=== PATIENT | male | born 2000 | race African-American/Black ===

== ENCOUNTER → 2021-10-15 15:19 | Outpatient (BNVA) | payer OTHER, SELFPAY | PROVIDERS: Visit Provider Nurse Practitioner Family | DX: Z20.822 Contact with and (suspected) exposure to COVID-19 (principal) | CPT/HCPCS: 87635 ==

== ENCOUNTER 2024-09-13 16:06 | Emergency (ER) | payer SELFPAY ==
[2024-09-13 16:18] VITALS: BP 117/65; PULSE 71; RESP 16; TEMP 36.8; O2SAT 97; BMI 21.7
--- NOTE | 2024-09-13 16:38 | W.ED.ABDPA2 ---
Documented by User: Nithin Rodriguez DO 09/15/24 05:45 HPI - Abdominal Pain General: Chief Complaint: Abdominal Pain Stated Complaint: Abdominal Pain Time Seen by Provider: 09/13/24 16:22 History of Present Illness: 24-year-old male presents emergency room with abdominal pain. Complains of generalized abdominal cramping very nonspecific he states it began after he ingested some foods that had red dye and. He has family members who have difficulty with red dye. He has not had any fever sweats or chills. He has not had any vomiting or diarrhea. He no dysuria urgency or frequency no chest pain no cough no shortness of breath Associated Symptoms: Reports GI cramping and nausea; Denies chills, dysuria, fever(s) and vomiting Related Data Home Medications Medication Instructions Recorded Confirmed No Known Home Medications 10/15/21 10/15/21 Allergies Allergy/AdvReac Type Severity Reaction Status Date / Time No Known Allergies Allergy Unverified 10/15/21 14:43 Review of Systems Const: Denies: fever(s) or chills Card: Denies: chest pain Resp: Denies: dyspnea GI: Reports: abdominal pain, nausea and GI cramping; Denies: vomiting : Denies: dysuria, urinary frequency or urinary urgency Musc: Denies: neck pain or back pain Skin/Breast: Denies: rash Physical Exam Const: GENERAL APPEARANCE: cooperative ORIENTATION/CONSCIOUSNESS: Yes awake, Yes oriented to person, Yes oriented to place and Yes oriented to time HENMT: COMMON NORMALS: normocephalic, atraumatic and hearing grossly normal bilaterally HEAD & SCALP: normocephalic and atraumatic Resp: COMMON NORMALS: normal respiratory effort, No retractions, No use of accessory muscles and clear to auscultation bilaterally AUSCULTATION: clear to auscultation bilaterally Cardio: COMMON NORMALS: regular rate, regular rhythm and No murmurs present (Cardio) RATE: regular rate RHYTHM: regular rhythm GI: COMMON NORMALS: Soft to palpation and No hepatosplenomegaly present AUSCULTATION: Yes normoactive bowel sounds PALPATION: Yes Soft to palpation, No Tenderness to palpation present (GI), No Guarding due to palpation present (GI) and Yes No hepatosplenomegaly present Extremity: COMMON NORMALS: normal to inspection, capillary refill normal, no clubbing, cyanosis or edema, no calf tenderness and no pedal edema Neuro: SENSORIUM/ORIENTATION: Yes oriented to person, Yes oriented to place and Yes oriented to time Skin: COMMON NORMALS: no rashes or lesions noted GENERAL SKIN EXAM: no rashes or lesions noted Course Vital Signs: Vital signs: Vital Signs Temperature 98.2 F 09/13/24 16:18 Pulse Rate 65 09/13/24 19:19 Respiratory Rate 16 09/13/24 19:19 Blood Pressure 123/59 09/13/24 19:19 Pulse Oximetry 99 09/13/24 19:19 Oxygen Delivery Me thod Room Air 09/13/24 17:10 MDM - Abdominal Pain Medical Decision Making Care signed out to Dr. Hernandez at change of shift. See final notes for diagnosis and disposition. Lab Data 09/13/24 17:33 09/13/24 17:33 Labs/Radiology: Laboratory Results WBC 7.30 10^3/uL (3.29-11.43) 09/13/24 17:33 RBC 4.04 10^6/uL (3.85-5.65) 09/13/24 17:33 Hgb 12.70 g/dL (11.27-16.99) 09/13/24 17:33 Hct 37.4 % (37-53) 09/13/24 17:33 MCV 92.6 fl (82-101) 09/13/24 17:33 MCH 31.4 pg (27-33) 09/13/24 17:33 MCHC 34.0 g/dL (30-55) 09/13/24 17:33 RDW 12.5 % (12.1-15.1) 09/13/24 17:33 Plt Count 191 10^3/cmm (157-399) 09/13/24 17:33 MPV 9.4 fL (7.4-10.4) 09/13/24 17:33 Neut % (Auto) 40.0 % 09/13/24 17:33 Lymph % (Auto) 48.5 % 09/13/24 17:33 Christian % (Auto) 8.4 % 09/13/24 17:33 Eos % (Auto) 2.5 % 09/13/24 17:33 Baso % (Auto) 0.5 % 09/13/24 17:33 Neut # (Auto) 2.92 10^3/uL (1.8-7.7) 09/13/24 17:33 Lymph # (Auto) 3.5 10^3/uL (0.8-4.8) 09/13/24 17:33 Christian # (Auto) 0.6 10^3/uL (0.2-0.9) 09/13/24 17:33 Eos # (Auto) 0.2 10^3/uL (0.0-0.8) 09/13/24 17:33 Baso # (Auto) 0.0 10^3/uL (0.0-0.1) 09/13/24 17:33 Nucleated RBC % (auto) 0 % 09/13/24 17:33 Nucleated RBCs # 0.0 /100WBC 09/13/24 17:33 Sodium 142 mmol/L (136-145) 09/13/24 17:33 Potassium 3.9 mmol/L (3.5-5.1) 09/13/24 17:33 Chloride 106 mmol/L (98-107) 09/13/24 17:33 Carbon Dioxide 30 mmol/L (22-29) H 09/13/24 17:33 Anion Gap 9.9 (5-19) 09/13/24 17:33 BUN 15 mg/dL (6-20) 09/13/24 17:33 Creatinine 0.8 mg/dL (0.7-1.2) 09/13/24 17:33 GFR Calculation 142.5 mL/min (90-130) H 09/13/24 17:33 Glucose 108 mg/dL (65-115) 09/13/24 17:33 Calculated Osmolality 295 mOsm/kg (285-295) 09/13/24 17:33 Calcium 8.9 mg/dL (8.5-10.5) 09/13/24 17:33 Total Bilirubin 0.3 mg/dL (0.15-1.2) 09/13/24 17:33 AST 19 U/L (0-40) 09/13/24 17:33 ALT 14 U/L (0-41) 09/13/24 17:33 Alkaline Phosphatase 54 U/L (40-130) 09/13/24 17:33 Total Protein 6.4 g/dL (6.6-8.7) L 09/13/24 17: Albumin 4.0 g/dL (3.5-5.2) 09/13/24 17:33 Globulin 2.4 g/dL (1.3-4.6) 09/13/24 17:33 Urine Color Yellow (Yellow) 09/13/24 17:30 Urine Appearance Clear (CLEAR) 09/13/24 17:30 Urine pH 7.5 (5-7) 09/13/24 17:30 Ur Specific [place] 1.024 (1.005-1.030) 09/13/24 17:30 Urine Protein Negative (Negative) 09/13/24 17:30 Urine Glucose (UA) Negative (Normal) 09/13/24 17:30 Urine Ketones Negative (Negative) 09/13/24 17:30 Urine Blood Negative (Negative) 09/13/24 17:30 Urine Nitrate Negative (Negative) 09/13/24 17:30 Urine Bilirubin Negative (Negative) 09/13/24 17:30 Urine Urobilinogen 1.0 mg/dL (Negative) 09/13/24 17:30 Ur Leukocyte Esterase Negative (Negative) 09/13/24 17:30 Amorphous Sediment Not Reportable 09/13/24 17:30 Coronavirus (PCR) Negative (Negative) 09/13/24 16:55 Influenza A (PCR) Negative (Negative) 09/13/24 16:55 Influenza Type B (PCR) Negative (Negative) 09/13/24 16:55 RSV (PCR) Negative (Negative) 09/13/24 16:55 Discharge Plan Discharge Patient Disposition: Home Clinical Impression: Abdominal pain Condition: Stable Prescriptions: No Action No Known Home Medications Discharge Orders: Discharge ED (Routine); Ordered 09/13/24 Ordered By: Joy Hernandez Discharge Diet: Advance as tolerated Patient Instructions: Abdominal Pain (ED), Opioid Safety, Pain Management Activity Restrictions/Additional Instructions: Thank you for choosing [facility] for your healthcare needs today. Please realize this is an emergency room and that we are providing you with a medical screening exam and this may not be complete and all inclusive of all the testing and or work up that you may need to determine your ailment or severity of your illness. You have been screened and evaluated and felt safe for discharge. Health conditions do change or evolve sometimes and as such it is important that you follow up with your Primary Doctor to be re checked, 3-5 days is a general good time frame for follow up. You are always welcome to return to the ED for re assessment if your symptoms are worsening or you have new concerns Stand Alone Forms: Work/School Release Coding Level of Care Code ED Optometry Teacher for Chg Fwd Documented by User: Joy Hernandez MD 09/13/24 19:07 HPI - Abdominal Pain General: Chief Complaint: Abdominal Pain Stated Complaint: Abdominal Pain Time Seen by Provider: 09/13/24 16:22 Related Data Home Medications Medication Instructions Recorded Confirmed No Known Home Medications 10/15/21 10/15/21 Allergies Allergy/AdvReac Type Severity Reaction Status Date / Time No Known Allergies Allergy Unverified 10/15/21 14:43 Course Vital Signs: Vital signs: Vital Signs Temperature 98.2 F 09/13/24 16:18 Pulse Rate 65 09/13/24 19:19 Respiratory Rate 16 09/13/24 19:19 Blood Pressure 123/59 09/13/24 19:19 Pulse Oximetry 99 09/13/24 19:19 Oxygen Delivery Ca thod Room Air 09/13/24 17:10 MDM - Abdominal Pain Medical Decision Making Care signed out to Dr. Hernandez at change of shift. See final notes for diagnosis and disposition. Patient care transitioned to wv at shift change awaiting lab work. The lab work is unremarkable. Patient is being discharged. Lab Data 09/13/24 17:33 09/13/24 17:33 Labs/Radiology: Laboratory Results WBC 7.30 10^3/uL (3.29-11.43) 09/13/24 17:33 RBC 4.04 10^6/uL (3.85-5.65) 09/13/24 17:33 Hgb 12.70 g/dL (11.27-16.99) 09/13/24 17:33 Hct 37.4 % (37-53) 09/13/24 17:33 MCV 92.6 fl (82-101) 09/13/24 17:33 MCH 31.4 pg (27-33) 09/13/24 17: MCHC 34.0 g/dL (30-55) 09/13/24 17:33 RDW 12.5 % (12.1-15.1) 09/13/24 17:33 Plt Count 191 10^3/cmm (157-399) 09/13/24 17:33 MPV 9.4 fL (7.4-10.4) 09/13/24 17:33 Neut % (Auto) 40.0 % 09/13/24 17:33 Lymph % (Auto) 48.5 % 09/13/24 17:33 Christian % (Auto) 8.4 % 09/13/24 17:33 Eos % (Auto) 2.5 % 09/13/24 17:33 Baso % (Auto) 0.5 % 09/13/24 17:33 Neut # (Auto) 2.92 10^3/uL (1.8-7.7) 09/13/24 17:33 Lymph # (Auto) 3.5 10^3/uL (0.8-4.8) 09/13/24 17:33 Christian # (Auto) 0.6 10^3/uL (0.2-0.9) 09/13/24 17:33 Eos # (Auto) 0.2 10^3/uL (0.0-0.8) 09/13/24 17:33 Baso # (Auto) 0.0 10^3/uL (0.0-0.1) 09/13/24 17:33 Nucleated RBC % (auto) 0 % 09/13/24 17:33 Nucleated RBCs # 0.0 /100WBC 09/13/24 17:33 Sodium 142 mmol/L (136-145) 09/13/24 17:33 Potassium 3.9 mmol/L (3.5-5.1) 09/13/24 17:33 Chloride 106 mmol/L (98-107) 09/13/24 17:33 Carbon Dioxide 30 mmol/L (22-29) H 09/13/24 17:33 Anion Gap 9.9 (5-19) 09/13/24 17:33 BUN 15 mg/dL (6-20) 09/13/24 17:33 Creatinine 0.8 mg/dL (0.7-1.2) 09/13/24 17:33 GFR Calculation 142.5 mL/min (90-130) H 09/13/24 17:33 Glucose 108 mg/dL (65-115) 09/13/24 17:33 Calculated Osmolality 295 mOsm/kg (285-295) 09/13/24 17:33 Calcium 8.9 mg/dL (8.5-10.5) 09/13/24 17:33 Total Bilirubin 0.3 mg/dL (0.15-1.2) 09/13/24 17:33 AST 19 U/L (0-40) 09/13/24 17:33 ALT 14 U/L (0-41) 09/13/24 17:33 Alkaline Phosphatase 54 U/L (40-130) 09/13/24 17:33 Total Protein 6.4 g/dL (6.6-8.7) L 09/13/24 17: Albumin 4.0 g/dL (3.5-5.2) 09/13/24 17:33 Globulin 2.4 g/dL (1.3-4.6) 09/13/24 17:33 Urine Color Yellow (Yellow) 09/13/24 17:30 Urine Appearance Clear (CLEAR) 09/13/24 17:30 Urine pH 7.5 (5-7) 09/13/24 17:30 Ur Specific [place] 1.024 (1.005-1.030) 09/13/24 17:30 Urine Protein Negative (Negative) 09/13/24 17:30 Urine Glucose (UA) Negative (Normal) 09/13/24 17:30 Urine Ketones Negative (Negative) 09/13/24 17:30 Urine Blood Negative (Negative) 09/13/24 17:30 Urine Nitrate Negative (Negative) 09/13/24 17:30 Urine Bilirubin Negative (Negative) 09/13/24 17:30 Urine Urobilinogen 1.0 mg/dL (Negative) 09/13/24 17:30 Ur Leukocyte Esterase Negative (Negative) 09/13/24 17:30 Amorphous Sediment Not Reportable 09/13/24 17:30 Coronavirus (PCR) Negative (Negative) 09/13/24 16:55 Influenza A (PCR) Negative (Negative) 09/13/24 16:55 Influenza Type B (PCR) Negative (Negative) 09/13/24 16:55 RSV (PCR) Negative (Negative) 09/13/24 16:55 No radiology studies performed this visit Discharge Plan Discharge Patient Disposition: Home Clinical Impression: Abdominal pain Condition: Stable Prescriptions: No Action No Known Home Medications Discharge Orders: Discharge ED (Routine); Ordered 09/13/24 Ordered By: Joy Hernandez Discharge Diet: Advance as tolerated Patient Instructions: Abdominal Pain (ED), Opioid Safety, Pain Management Activity Restrictions/Additional Instructions: Thank you for choosing [facility] for your healthcare needs today. Please realize this is an emergency room and that we are providing you with a medical screening exam and this may not be complete and all inclusive of all the testing and or work up that you may need to determine your ailment or severity of your illness. You have been screened and evaluated and felt safe for discharge. Health conditions do change or evolve sometimes and as such it is important that you follow up with your Primary Doctor to be re checked, 3-5 days is a general good time frame for follow up. You are always welcome to return to the ED for re assessment if your symptoms are worsening or you have new concerns Stand Alone Forms: Work/School Release Coding Level of Care Code ED Optometry Teacher for [employer]iel Sam
[2024-09-13 17:10] VITALS: BP 108/48; RESP 16; O2SAT 97
[2024-09-13 17:35] LABS: Basophils % 0.5 %; Eosinophils # 0.2 10^3/uL (0.0-0.8); Eosinophils % 2.5 %; Hematocrit 37.4 % (37-53); Lymphocytes # 3.5 10^3/uL (0.8-4.8); Lymphocytes % 48.5 %; Mean Corpuscular Hemoglobin 31.4 pg (27-33); Mean Corpuscular Volume 92.6 fl (82-101); Mean Platelet Volume 9.4 fL (7.4-10.4); Monocytes # 0.6 10^3/uL (0.2-0.9); Monocytes % 8.4 %; Neutrophils # 2.92 10^3/uL (1.8-7.7); Nucleated Red Blood Cells % 0 %; Platelet Count 191 10^3/cmm (157-399); Red Blood Count 4.04 10^6/uL (3.85-5.65); Red Cell Distribution Width 12.5 % (12.1-15.1)
[2024-09-13 17:42] LABS: Covid PCR NEGATIVE (Negative); Influenza A NEGATIVE (Negative); Influenza B NEGATIVE (Negative); Respiratory Syncytial Virus Ce NEGATIVE (Negative)
[2024-09-13 17:51] LABS: Alanine Aminotransferase 14 U/L (0-41); Alkaline Phosphatase 54 U/L (40-130); Anion Gap 9.9 (5-19); Aspartate Amino Transferase 19 U/L (0-40); Blood Urea Nitrogen 15 mg/dL (6-20); Calcium 8.9 mg/dL (8.5-10.5); Carbon Dioxide 30 mmol/L (22-29); Chloride 106 mmol/L (98-107); Creatinine Clr Calc Pharmacy 150.9175; Globulin 2.4 g/dL (1.3-4.6); Glomerular Filtration Rate 142.5 mL/min (90-130); Glucose 108 mg/dL (65-115); Osmolality Calculated 295 mOsm/kg (285-295); Potassium 3.9 mmol/L (3.5-5.1); Sodium 142 mmol/L (136-145); Total Bilirubin 0.3 mg/dL (0.15-1.2); Total Protein 6.4 g/dL (6.6-8.7)
[2024-09-13 17:55] LABS: Add Urine Microscopic? NO
[2024-09-13 17:57] LABS: Bilirubin Urine Negative (Negative); Blood Urine Negative (Negative); Glucose Urine UA Negative (Normal); Ketones Urine Negative (Negative); Leukocyte Esterase Urine Negative (Negative); Nitrate Urine Negative (Negative); Protein Urine Negative (Negative); Specific Gravity, Urine 1.024 (1.005-1.030); Urine Appearance Clear (CLEAR); Urine Color Yellow (Yellow); pH Urine 7.5 (5-7)
[2024-09-13 18:02] LABS: Add Urine Culture? No; Charge for UA Resulting for Rev
[2024-09-13 19:19] VITALS: BP 123/59; PULSE 65; RESP 16; O2SAT 99
== END 2024-09-13 19:20 | disposition home or self-care (01) ==
PROVIDERS: Family Medicine; Nurse Practitioner Family; Emergency Provider Emergency Medicine
DX: R10.84 Generalized abdominal pain (principal); Z11.52 Encounter for screening for COVID-19
CPT/HCPCS: 0241U; 80053; 81003; 85025; 99283